=== PATIENT | female | born 1990 | race Caucasian/White ===

== ENCOUNTER 2016-10-26 17:11 | Emergency (ER) | payer OTHER ==
[~2016-10-26] VITALS: Ht 157.5 cm; Wt 79.4 kg
[~2016-10-26 17:11] MED LIST: ABILIFY5 MG; ACETAMINOPHEN-1 EAC1 PO; ACETAMINOPHEN325 M1 PO; AMITRIPTYLINE H25 MG; AMOXICILLIN500 MG PO; ANAPROX275 MG; AUGMENTIN 875-1 EACH PO; DICLOXACILLIN500 MG PO; FLONASE2 SPRAY NS; PERCOCET 5-3251 EACH PO; PRENACARE TABL1 EACH PO; TUMS200 MG PO; TYLENOL325 MG PO
[2016-10-26] MEDS ORDERED: MEDROXYPRO150 MG/1 M IM (17:22)
== END 2016-10-26 21:12 | disposition home or self-care (01) ==
LOC: ED 17:11
DX: J02.9 Acute pharyngitis, unspecified (principal); R00.0 Tachycardia, unspecified; Z79.899 Other long term (current) drug therapy
CPT/HCPCS: 87081; 87147; 87880; 96361; 96374; 99284; J1885; J7030

== ENCOUNTER 2018-08-15 04:47 | Emergency (ER) | payer OTHER ==
[~2018-08-15] VITALS: Ht 157.5 cm; Wt 81.7 kg
--- OUTSIDE RECORDS SUMMARY | ~2018-08-15 | XMS | Clinical Summary ---
Demographics + + + | Address | [address] | | | [place] [address] | + + + | Preferred Language | Unknown | + + + | Marital Status | Unknown | + + + | Confucianist Affiliation | Unknown | + + + | Race | Unknown | + + + | Ethnic Group | Unknown | + + + Author + + + | Author | [facility] | | | and [place] | + + + | [facility] | [facility] | | | and [place] | + + + | Address | Unknown | + + + | Phone | Unavailable | + + + Care Team Providers + +------+ + | Care Sprinkler Worker Name | Role | Phone | + +------+ + PP | Unavailable | + +------+ + Allergies Not on File Medications Not on file Active Problems Not on file Social History + +-------+ +--------+------+ | Tobacco Use | Types | Packs/Day | Years | Date | | | | | Used | | + +-------+ +--------+------+ | Never Assessed | | | | | + +-------+ +--------+------+ + + + | Sex Assigned at | Date Recorded | | | | + + + | Not on file | | + + + + + + + | Job Start Date | Occupation | Industry | + + + + | Not on file | Not on file | Not on file | + + + + + + + + | Travel History | Travel Start | Travel End | + + + + + + | No recent travel history available. | + + Plan of Treatment + + + + + | Health Maintenance | Due Date | Last Done | Comments | + + + + + | Vaccine: | | | | | Dtap/Tdap/Td (1 - | 7 | | | | Tdap) | | | | + + + + + | Cervical Cancer | | | | | Screening (Pap) | 8 | | | + + + + + | Vaccine: Influenza | | | | | (Season Ended) | 9 | | | + + + + + Results Not on filefrom Last 3 Months Advance Directives Patient has advance care planning documents on file. For more information, please contact:[facility] [place] [address]"
--- OUTSIDE RECORDS SUMMARY | ~2018-08-15 | XMS | Clinical Summary ---
Demographics + + + | Address | [address] | | | [place] [address] | + + + | Preferred Language | Unknown | + + + | Marital Status | Unknown | + + + | Advent Affiliation | Unknown | + + + | Race | Unknown | + + + | Ethnic Group | Unknown | + + + Author + + + | Author | [facility] | | | and [place] | + + + | [facility] | [facility] | | | and [place] | + + + | Address | Unknown | + + + | Phone | Unavailable | + + + Care Team Providers + +------+ + | Care Overhauler Name | Role | Phone | + [...] documents on file. For more information, please contact:[facility] [place] [address]"
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
[~2018-08-15 04:47] MED LIST changes: +IMPLANON; +MEDROXYPRO150 MG/1 M IM
[2018-08-15] MEDS ORDERED: NORCO 5-325 TA1 EACH PO (05:17)
[2018-08-15] MEDS ORDERED: AUGMENTIN 875-1 EACH PO (05:17)
== END 2018-08-15 05:28 | disposition home or self-care (01) ==
LOC: ED 04:47
DX: J01.90 Acute sinusitis, unspecified (principal)
CPT/HCPCS: 99283

== ENCOUNTER 2019-02-21 01:14 | Emergency (ER) | payer OTHER ==
[~2019-02-21] VITALS: Ht 157.5 cm; Wt 81.6 kg
--- OUTSIDE RECORDS SUMMARY | ~2019-02-21 | XMS | Clinical Summary ---
Demographics + + + | Address | [address] | | | [place] [address] | + + + | Preferred Language | Unknown | + + + | Marital Status | Unknown | + + + | Christian Affiliation | Unknown | + + + | Race | Unknown | + + + | Ethnic Group | Unknown | + + + Author + + + | Author | [facility] | | | and [place] | + + + | [facility] | [facility] | | | and [place] | + + + | Address | Unknown | + + + | Phone | Unavailable | + + + Care Team Providers + +------+ + | Care Director Behavioral Health Name | Role | Phone | + +------+ + | Brady Palma NP | PCP | | + +------+ + Allergies Not on File Medications Not on file Active Problems Not on file Family History + + +------+ + | [...] recent travel history available. | + + Last Filed Vital Signs Not on file Plan of Treatment + + + + [...] Vaccine: Influenza | | | | | (#1) | 9 | | | + + + + + Results Not on filefrom Last 3 Months Advance Directives + + + + + | Type | Date Recorded | Patient | Explanation | | | | Loader | | + + + + + | Power of | | | | | Production Team Manager | | | | + + + + + | Advance | | | | | Directive | | | | + + + + +"
--- OUTSIDE RECORDS SUMMARY | ~2019-02-21 | XMS | Encounter Summary ---
Demographics + + + | Address | [address] | | | [place] [address] | + + + | Preferred Language | Unknown | + + + | Marital Status | Unknown | + + + | Advent Affiliation | Unknown | + + + | Race | Unknown | + + + | Ethnic Group | Unknown | + + + Author + + + | Author | [facility] | | | and [place] | + + + | Organization | [facility] | | | and [place] | + + + | Address | Unknown | + + + | Phone | Unavailable | + + + Care Team Providers + +------+ + | Care Clinical Assessment Manager Name | Role | Phone | + +------+ + PCP | Unavailable | + +------+ + Encounter Details +--------+ + + + + | Date | Type | Department | Care Team | Description | +--------+ + + + + | 07/31/ | Emergency | [facility] | [facility], | | | 2011 | | MEDICAL CENTER | [address] | | | | | EMERGENCY CENTER | [place] [address] | | | | | [address] | [phone] | | | | | [place], [place] | | | | | | [address] | | | | | | [phone] | | | +--------+ + + + + Social History + +-------+ +--------+------+ | [...] recent travel history available. | + + documented as of this encounter Plan of Treatment Not on filedocumented as of this encounter Visit Diagnoses Not on filedocumented in this encounter"
--- OUTSIDE RECORDS SUMMARY | ~2019-02-21 | XMS | Encounter Summary ---
Demographics + + + | Address | [address] | | | [place] [address] | + + + | Preferred Language | Unknown | + + + | Marital Status | Unknown | + + + | Denominational Affiliation | Unknown | + + + | Race | Unknown | + + + | Ethnic Group | Unknown | + + + Author + + + | Author | [facility] | | | and [place] | + + + | Organization | [facility] | | | and [place] | + + + | Address | Unknown | + + + | Phone | Unavailable | + + + Care Team Providers + +------+ + | Care Front Desk Specialist Name | Role | Phone | + +------+ + PCP | Unavailable | + +------+ + Encounter Details +--------+ + + + + | Date | Type | Department | Care Team | Description | +--------+ + + + + | 05/17/ | Emergency | [facility] | No, Physician | Patient left without | | 2015 | [facility] | | being seen (Primary | | | | EMERGENCY CENTER | | Dx) | | | | [address] | | | | | | [place] | | | | | | [address] | | | | | | [phone] | | | +--------+ + + + [...] filedocumented as of this encounter Visit Diagnoses + + | Diagnosis | + + | Patient left without being seen - Primary Surgical or other procedure not carried out | | because of patient's decision | + + documented in this encounter"
--- OUTSIDE RECORDS SUMMARY | ~2019-02-21 | XMS | Clinical Summary ---
Demographics + + + | Address | [address] | | | [place] [address] | + + + | Preferred Language | Unknown | + + + | Marital Status | Unknown | + + + | Sabianism Affiliation | Unknown | + + + | Race | Unknown | + + + | Ethnic Group | Unknown | + + + Author + + + | Author | [facility] | | | and [place] | + + + | [facility] | [facility] | | | and [place] | + + + | Address | Unknown | + + + | Phone | Unavailable | + + + Care Team Providers + +------+ + | Care Basket Sorter Name | Role | Phone | + [...] Patient | Explanation | | | | Patient Access Coordinator | | + + + + + | Power of | | | | | Sergeant Missile Crewman | | | | + + + + + | Advance | | | | | Directive | | | | + + + + +"
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
--- OUTSIDE RECORDS SUMMARY | ~2019-02-21 | XMS | Encounter Summary ---
Demographics + + + | Address | [address] | | | [place] [address] | + + + | Preferred Language | Unknown | + + + | Marital Status | Unknown | + + + | Christian Affiliation | Unknown | + + + | Race | Unknown | + + + | Ethnic Group | Unknown | + + + Author + + + | Author | [facility] | | | and [place] | + + + | Organization | [facility] | | | and [place] | + + + | Address | Unknown | + + + | Phone | Unavailable | + + + Care Team Providers + +------+ + | Care Pull Over Machine Operator Name | Role | Phone | + +------+ + PCP | Unavailable | + +------+ + Encounter Details +--------+ + + + + | Date | Type | Department | Care Team | Description | +--------+ + + + + | 07/31/ | Emergency | [facility] | [facility], | | | 2011 | | MEDICAL CENTER | [address] | | | | | EMERGENCY CENTER | [place] [address] | | | | | [address] | [phone] | | | | | [place], [place] | | | | | | [address] | | | | | | [phone] | | | +--------+ + + + [...]
--- OUTSIDE RECORDS SUMMARY | ~2019-02-21 | XMS | Encounter Summary ---
Demographics + + + | Address | [address] | | | [place] [address] | + + + | Preferred Language | Unknown | + + + | Marital Status | Unknown | + + + | Alevism Affiliation | Unknown | + + + | Race | Unknown | + + + | Ethnic Group | Unknown | + + + Author + + + | Author | [facility] | | | and [place] | + + + | Organization | [facility] | | | and [place] | + + + | Address | Unknown | + + + | Phone | Unavailable | + + + Care Team Providers + +------+ + | Care Manager Investment Banking Name | Role | Phone | + [...] [place] | | | | | | [address] | | | | | | [phone] | | | +--------+ + + + [...]
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
[~2019-02-21 01:14] MED LIST changes: +NORCO 5-325 TA1 EACH PO
[2019-02-21] MEDS ORDERED: AMOXICILLIN500 MG PO (01:33)
--- NOTE | 2019-02-22 10:14 | NUR ---
RECORDS FAXED TO [facility] AT REQUEST OF
== END 2019-02-21 01:43 | disposition home or self-care (01) ==
LOC: ED 01:14
DX: J02.9 Acute pharyngitis, unspecified (principal); Z87.891 Personal history of nicotine dependence
CPT/HCPCS: 87081; 87880; 99283

== ENCOUNTER 2021-01-15 21:13 | Emergency (ER) | payer OTHER ==
[~2021-01-15] VITALS: Ht 157.5 cm; Wt 84.2 kg
[2021-01-15] MEDS ORDERED: ZOFRAN4 MG PO (23:21)
== END 2021-01-15 23:40 | disposition home or self-care (01) ==
LOC: ED 21:13
DX: R10.11 Right upper quadrant pain (principal); Z87.891 Personal history of nicotine dependence; Z88.0 Allergy status to penicillin
CPT/HCPCS: 76705; 80053; 81001; 83690; 84703; 85025; 96374; 99284-25; A9270; J2405

== ENCOUNTER 2022-04-04 03:46 | Emergency (ER) | payer OTHER ==
[~2022-04-04] VITALS: Ht 157.5 cm; Wt 83.6 kg
[~2022-04-04 03:46] MED LIST changes: +MACROBID 100 M100 MG PO; +ZOFRAN4 MG PO
[2022-04-04] MEDS ORDERED: AMOXICILLIN500 MG PO (04:18)
== END 2022-04-04 04:29 | disposition home or self-care (01) ==
LOC: ED 03:46
DX: H66.91 Otitis media, unspecified, right ear (principal); Z87.891 Personal history of nicotine dependence
CPT/HCPCS: 99282